=== PATIENT | female | born 1945 | race Asian ===

== ENCOUNTER 2016-04-19 15:29 | Inpatient (IN) | payer OTHER ==
[~2016-04-19] VITALS: Ht 149.9 cm; Wt 64.0 kg
[2016-04-19] MEDS ORDERED: METO-323 PO (15:56)
[2016-04-19] MEDS ORDERED: ASPI-556 PO (15:56)
[2016-04-19] MEDS ORDERED: ROSU20 PO (15:56)
[2016-04-19] MEDS ORDERED: NITR.3 SL (15:56)
[2016-04-19] MEDS ORDERED: IRBE150T51 PO (15:56)
[2016-04-19] MEDS ORDERED: CLON.1 PO (15:56)
[2016-04-19 16:45] LABS: BASOPHILS # (AUTO) 0.04 K/uL (0.00-0.20); BASOPHILS % (AUTO) 0.6 % (0.0-2.0); EOSINOPHILS # (AUTO) 0.18 K/uL (0.00-0.70); EOSINOPHILS % (AUTO) 2.92 % (1.0-6.0); HEMATOCRIT 40.5 % (36-46); HEMOGLOBIN 13.4 g/dL (12.0-16.0); LYMPHOCYTES % (AUTO) 31.1 % (22.0-44.0); MEAN CORPUSCULAR HEMOGLOBIN 28.9 pg (26.0-34.0); MEAN CORPUSCULAR HGB CONC 33.1 G/dL (31.0-37.0); MEAN CORPUSCULAR VOLUME 87 fL (80-100); MONOCYTES # (AUTO) 0.5 K/uL (0.1-1.0); MONOCYTES % (AUTO) 8.4 % (2.0-9.0); NEUTROPHILS # (AUTO) 3.6 K/uL (1.8-7.7); PLATELET COUNT (AUTO) 193 K/uL (150-450); RED BLOOD CELL COUNT(AUTO) 4.64 MIL/uL (4.00-5.20); RED CELL DISTRIBUTION WIDTH 13.6 % (11.5-14.5); WHITE BLOOD COUNT (AUTO) 6.3 K/uL (4.5-11.0)
[2016-04-19 16:57] LABS: ANION GAP 6 mmol/L (8-16); CALCIUM, TOTAL 8.8 mg/dL (8.8-10.5); CARBON DIOXIDE 32 mmol/L (22-29); CHLORIDE 103 mmol/L (98-107); CREATININE 1.07 mg/dL (0.60-1.30); GLOMERULAR FILTR. RATE CALC 51 mL/min (>60); SODIUM SERUM 141 mmol/L (136-145); UREA NITROGEN, BLOOD 17 mg/dL (7-18)
[2016-04-19 16:58] LABS: PROTHROMBIN TIME 10.7 SEC (9.4-11.6)
[2016-04-19] MEDS ORDERED: SODIUM CHLORIDE 0.9% 1,000 ML IV ONE (17:00)
[2016-04-19 17:09] LABS: B-TYPE NATRIURETIC PEPTIDE 166 pg/mL (0-100)
[2016-04-19 17:22] LABS: BILIRUBIN,TOTAL 0.7 mg/dL (0.1-1.0)
[2016-04-19 17:23] LABS: ALANINE AMINOTRANSFERASE 21 U/L (12-78); ALBUMIN 3.9 g/dL (3.4-5.0); ASPARTATE AMINOTRANSFERASE 17 U/L (15-37); CREATINE KINASE MB 0.9 ng/mL (0-5); CREATINE KINASE, TOTAL 90 U/L (26-192); TOTAL PROTEIN, SERUM 8.1 g/dL (6.4-8.2)
[2016-04-19 18:11] LABS: APPEARANCE,URINE CLEAR (CLEAR); GLUCOSE, URINE (UA) NEGATIVE (NEGATIVE); KETONES,URINE NEGATIVE (NEGATIVE); LEUKOCYTE ESTERASE ,URINE SMALL (NEGATIVE); OCCULT BLOOD,URINE NEGATIVE (NEGATIVE); PROTEIN,URINE NEGATIVE (NEGATIVE)
[2016-04-19 18:15] LABS: ADD UA MICROSCOPIC YES
[2016-04-19] MEDS ORDERED: AmLODIPine BESYLATE 5 MG TABLET PO ONE (18:30)
[2016-04-19 18:31] LABS: SQUAMOUS EPITHELIAL CELL,UR Moderate /LPF (None Seen)
[2016-04-19 18:32] LABS: RBC,URINE None Seen /HPF (0-2)
[2016-04-19] MEDS ORDERED: ONDANSETRON HCL 4 MG/2 ML VIAL IVP PRN (19:15)
[2016-04-19] MEDS ORDERED: ACETAMINOPHEN 325 MG TABLET PO PRN (19:15)
[2016-04-19] MEDS ORDERED: 0.9% SODIUM CHLORIDE 10 ML SYRINGE IVP PRN (19:15)
[2016-04-19 20:20] VITALS: BP 172/72
[2016-04-20] VITALS (7 sets, daily range): BP systolic 125–159; BP diastolic 63–95
[2016-04-20 06:44] LABS: BASOPHILS % (AUTO) 0.5 % (0.0-2.0); EOSINOPHILS % (AUTO) 2.3 % (1.0-6.0); HEMATOCRIT 43.8 % (36-46); HEMOGLOBIN 14.3 g/dL (12.0-16.0); LYMPHOCYTES # (AUTO) 1.6 K/uL (1.0-4.8); LYMPHOCYTES % (AUTO) 17.7 % (22.0-44.0); MEAN CORPUSCULAR HEMOGLOBIN 28.8 pg (26.0-34.0); MEAN CORPUSCULAR HGB CONC 32.5 G/dL (31.0-37.0); MEAN CORPUSCULAR VOLUME 88 fL (80-100); MONOCYTES # (AUTO) 0.4 K/uL (0.1-1.0); NEUTROPHILS # (AUTO) 6.7 K/uL (1.8-7.7); NEUTROPHILS % (AUTO) 74.5 % (40.0-70.0); PLATELET COUNT (AUTO) 195 K/uL (150-450); RED BLOOD CELL COUNT(AUTO) 4.95 MIL/uL (4.00-5.20); RED CELL DISTRIBUTION WIDTH 13.6 % (11.5-14.5)
[2016-04-20 06:58] LABS: ALANINE AMINOTRANSFERASE 21 U/L (12-78); ANION GAP 10 mmol/L (8-16); ASPARTATE AMINOTRANSFERASE 17 U/L (15-37); BILIRUBIN,TOTAL 0.8 mg/dL (0.1-1.0); CARBON DIOXIDE 29 mmol/L (22-29); CHLORIDE 102 mmol/L (98-107); CREATININE 0.88 mg/dL (0.60-1.30); GLOMERULAR FILTR. RATE CALC > 60 mL/min (>60); POTASSIUM 3.3 mmol/L (3.5-5.1); SODIUM SERUM 141 mmol/L (136-145); TOTAL PROTEIN, SERUM 8.5 g/dL (6.4-8.2); UREA NITROGEN, BLOOD 13 mg/dL (7-18)
[2016-04-20] MEDS ORDERED: POTASSIUM CHLORIDE 20 MEQ ER TABLET PO PRN (11:00)
[2016-04-20] MEDS: ASPIRIN 81 MG EC TABLET PO SCH (11:15)
[2016-04-20] MEDS: ROSUVASTATIN CALCIUM 20 MG TABLET PO SCH (12:18)
[2016-04-20] MEDS: IRBESARTAN 150 MG TABLET PO SCH (12:18)
[2016-04-20] MEDS: CloNIDine HCL 0.1 MG TABLET PO SCH (20:18)
[2016-04-21] VITALS (7 sets, daily range): BP systolic 111–167; BP diastolic 58–76
[2016-04-21] MEDS: NITROGLYCERIN 0.3 MG SUBLINGUAL TABLET #100 SL PRN ×2 (05:06→08:56)
[2016-04-21] MEDS: ROSUVASTATIN CALCIUM 20 MG TABLET PO SCH (08:54)
[2016-04-21] MEDS: IRBESARTAN 150 MG TABLET PO SCH (08:54)
[2016-04-21] MEDS: ASPIRIN 81 MG EC TABLET PO SCH (08:55)
[2016-04-21] MEDS: CloNIDine HCL 0.1 MG TABLET PO SCH (20:14)
[2016-04-22] VITALS (7 sets, daily range): BP systolic 112–144; BP diastolic 65–91
[2016-04-22] MEDS ORDERED: 0.9% SODIUM CHLORIDE 10 ML SYRINGE IVP PRN (05:15)
[2016-04-22] MEDS: IRBESARTAN 150 MG TABLET PO SCH (08:10)
[2016-04-22] MEDS: ASPIRIN 81 MG EC TABLET PO SCH (08:10)
[2016-04-22] MEDS: ROSUVASTATIN CALCIUM 20 MG TABLET PO SCH (08:10)
[2016-04-22] MEDS ORDERED: SESTAMIBI TC99M/UD ISOTOPE 1 EA INJ INJ ONE ×2 (09:05→13:00)
[2016-04-22] MEDS ORDERED: DOBUTamine HCL/D5W 500 MG/250 ML IV BAG [STRESS LAB ONLY] IV ONE ×3 (12:57→17:49)
[2016-04-22] MEDS ORDERED: NITROGLYCERIN 400 MCG/SUBLINGUAL SPRAY 4.9 GM BOTTLE SL ONE ×2 (13:06→17:49)
[2016-04-22] MEDS ORDERED: AMLO5TAB4 PO ×2 (19:56→19:57)
[2016-04-22] MEDS ORDERED: AMLO2.5T2 PO (20:03)
[2016-04-23] MEDS ORDERED: AmLODIPine BESYLATE 5 MG TABLET PO SCH (09:00)
== END 2016-04-22 20:30 | disposition home or self-care (01) | DRG 199 ==
LOC: EMS 15:32 → 5S 18:52
PROVIDERS: ADMIT Internal Medicine; ATTEND Internal Medicine
DX: I11.9 Hypertensive heart disease without heart failure (principal); R00.1 Bradycardia, unspecified; E55.9 Vitamin D deficiency, unspecified; R07.9 Chest pain, unspecified; E78.2 Mixed hyperlipidemia; E78.00 Pure hypercholesterolemia, unspecified; J45.909 Unspecified asthma, uncomplicated; Z88.0 Allergy status to penicillin; Z79.82 Long term (current) use of aspirin; Z79.899 Other long term (current) drug therapy; Z90.710 Acquired absence of both cervix and uterus; Z82.49 Family history of ischemic heart disease and other diseases of the circulatory system; Z82.5 Family history of asthma and other chronic lower respiratory diseases
CPT/HCPCS: 78452; 84132; 87086; 93005; 93017; 93306; 96360; 99285; A9500; J1250; J7030